=== PATIENT | female | born 1990 | race Caucasian/White ===

== ENCOUNTER → 2017-07-05 | Outpatient (CLI) | payer OTHER ==
[~2017-07-05] MED LIST: ATOR-22 PO; BCPILLS PO
[2017-07-09 00:36] LABS: INSULIN LIKE GROWTH FACTOR-I 143 ng/mL (63-373)
== END | disposition home or self-care (01) ==
LOC: C.LAB1850 11:33
PROVIDERS: ATTEND Internal Medicine Endocrinology, Diabetes & Metabolism
DX: E88.81 Metabolic syndrome and other insulin resistance (principal); R53.83 Other fatigue; E03.9 Hypothyroidism, unspecified; E66.01 Morbid (severe) obesity due to excess calories